=== PATIENT | female | born 1975 | race Hispanic/Latino ===

== ENCOUNTER → 2021-07-27 | Outpatient (CLI) | payer OTHER ==
[~2021-07-27] MED LIST: BUME1TAB6 PO; CALC-1125 PO; FERR-63 PO; HYD25 PO; OMEP20TA25 PO; PNV1TABL17 PO; RIFA550T PO; SPIR25TA PO; TIZA2CAP9 PO; VITA1CAP PO
== END | disposition home or self-care (01) ==
LOC: RAH 15:46
PROVIDERS: ATTEND Internal Medicine
DX: J90 Pleural effusion, not elsewhere classified (principal); K74.60 Unspecified cirrhosis of liver; R91.8 Other nonspecific abnormal finding of lung field; M47.815 Spondylosis without myelopathy or radiculopathy, thoracolumbar region
CPT/HCPCS: 71046

== ENCOUNTER → 2021-11-21 | Outpatient (CLI) | payer OTHER ==
[~2021-11-21] MED LIST changes: +OMEP20TA20 PO; -OMEP20TA25 PO
[2021-11-21 09:01] LABS: INR 1.36 (0.85-1.15); PROTHROMBIN TIME 14.6 SEC (9.6-11.6)
[2021-11-21 09:03] LABS: PARTIAL THROMBOPLASTIN TIME 36.5 SEC (26.3-35.5)
[2021-11-21 09:17] LABS: TOTAL PROTEIN, SERUM 6.3 g/dL (6.0-8.3)
[2021-11-21 12:45] LABS: APPEARANCE BODY FLUID SLIGHTLY CLOUDY (CLEAR); COLOR,BODY FLUID DARK YELLOW (LT YELLOW); SPECIMENTYPE,BODY FLUID PLEURAL; TOTAL VOLUME,BODY FLUID 700 mL
[2021-11-21 12:54] LABS: BODY FLUID RBC 6375 /cu. mm.; BODY FLUID WBC 345 /cu. mm.
[2021-11-21 13:49] LABS: BF EOSINOPHIL 1 %; BF LYMPHOCYTE 90 %; BF MESOTHELIAL 3 %; BF MONOCYTE 5 %
== END | disposition home or self-care (01) ==
LOC: RAH 08:09
PROVIDERS: ATTEND Internal Medicine
DX: J90 Pleural effusion, not elsewhere classified (principal); Z79.01 Long term (current) use of anticoagulants
CPT/HCPCS: 32555; 71045; 82945; 83615 ×2; 84157; 84155; 83986; 89051; 85610; 85730; 87071; 87205; 36415; 88305; 88342; 88112; 88341; C1729

== ENCOUNTER 2024-03-14 07:24 | Day surgery (SDC) | payer OTHER, MEDICARE ==
[2024-03-10 11:32] LABS: BASOPHILS # (AUTO) 0.02 K/uL (0.00-0.20); BASOPHILS % (AUTO) 0.3 % (0.0-5.0); EOSINOPHILS # (AUTO) 0.14 K/uL (0.00-0.70); EOSINOPHILS % (AUTO) 2.2 % (0.0-8.0); HEMATOCRIT 37.4 % (36-48); IMMATURE GRANULOCYTE ABSOLUTE 0.02 K/uL (0-1); LYMPHOCYTES # (AUTO) 1.4 K/uL (1.0-4.8); LYMPHOCYTES % (AUTO) 21.5 % (21.0-51.0); MEAN CORPUSCULAR HGB CONC 33.2 g/dL (32.0-36.0); MEAN CORPUSCULAR VOLUME 87.6 fL (79-99); MONOCYTES # (AUTO) 0.4 K/uL (0.1-1.0); NEUTROPHILS # (AUTO) 4.5 K/uL (1.8-7.7); NEUTROPHILS % (AUTO) 69.7 % (40.0-77.0); PLATELET COUNT (AUTO) 245 K/uL (130-400); RED BLOOD CELL COUNT(AUTO) 4.27 MIL/uL (4.00-5.50); RED CELL DISTRIBUTION WIDTH 15.3 % (11.0-15.5); WHITE BLOOD COUNT (AUTO) 6.5 K/uL (4.8-10.8)
[2024-03-10 11:44] LABS: ALBUMIN 3.9 g/dL (3.5-5.0); BILIRUBIN,TOTAL 0.6 mg/dL (0.2-1.0); CREATININE 4.8 mg/dL (0.5-1.0); POTASSIUM 3.6 mmol/L (3.5-5.1); TOTAL PROTEIN, SERUM 8.3 g/dL (6.0-8.3)
[2024-03-10 11:52] LABS: INR 0.94 (0.85-1.15); PROTHROMBIN TIME 10.2 SEC (9.6-11.6)
[2024-03-10 11:53] LABS: PARTIAL THROMBOPLASTIN TIME 28.6 SEC (26.3-35.5)
[2024-03-10 11:59] VITALS: BP 137/70; PULSE 75; RESP 18; TEMP 98.1
[2024-03-14] VITALS (14 sets, daily range): BP systolic 115–144; BP diastolic 60–82; PULSE 83–101; RESP 14–17; TEMP 97.4–98.1
[~2024-03-14] VITALS: Ht 165.1 cm; Wt 87.3 kg
[~2024-03-14 07:24] MED LIST changes: +ALBU18HF7 IH; +ASPI-1197 PO; -BUME1TAB6 PO; -CALC-1125 PO; -FERR-63 PO; +FOLI0.8T22 PO; +FURO20TA4 PO; -HYD25 PO; +HYDR50TA37 PO; +NIFE-39 PO; -OMEP20TA20 PO; -PNV1TABL17 PO; -RIFA550T PO; +SEVE0.8P PO; -SPIR25TA PO; +TACR1CAP10 PO; -TIZA2CAP9 PO; +URSO300C4 PO; -VITA1CAP PO; +folic acid PO; +rosuvastatin PO
[2024-03-14 08:56] LABS: CREATININE 6.2 mg/dL (0.5-1.0); POTASSIUM 4.3 mmol/L (3.5-5.1)
[2024-03-14] MEDS ORDERED: dexaMETHasone SOD PHOSPHATE 10MG/ML 1ML VIAL ONE (09:20)
[2024-03-14] MEDS ORDERED: LIDOCAINE PF 100MG/5ML (2%) SYRINGE 5ML ONE (09:20)
[2024-03-14] MEDS ORDERED: GLYCOPYRROLATE 0.2 MG/ML 5 ML VIAL ONE (09:20)
[2024-03-14] MEDS ORDERED: SUCCINYLCHOLINE CHLORIDE 20 MG/ML 10 ML VIAL ONE (09:20)
[2024-03-14] MEDS ORDERED: NEOSTIGMINE METHYLSULFATE 1MG/ML IV ONE (09:20)
[2024-03-14] MEDS ORDERED: ondanSETRON 4MG INJ ONE (09:20)
[2024-03-14] MEDS ORDERED: FENTanyl CITRate PF 50 MCG/1 ML 2ML VIAL ONE ×2 (09:21→12:08)
[2024-03-14] MEDS ORDERED: rocuRONium bROMide 10MG/1ML 5ML VL ONE ×2 (09:21→12:15)
[2024-03-14] MEDS ORDERED: proPOFol 10 MG/ML 20ML VIAL IV ONE (09:21)
[2024-03-14] MEDS ORDERED: MIDAZOLAM HCL 1 MG/ML 2ML VIAL ONE (09:21)
[2024-03-14] MEDS: ceFAZolin SODIUM 2 GM VIAL ONE (09:24)
[2024-03-14] MEDS: 0.9% NACL 500ML IV.SOLN 500 ML IV ONE (09:25)
[2024-03-14] MEDS ORDERED: ketaMINE 50MG/ML SYRINGE 50 MG/ML DISP.SYRIN ONE (09:47)
[2024-03-14] MEDS ORDERED: SUGAMMADEX SODIUM 200 MG/2 ML VIAL IV ONE (09:48)
[2024-03-14] MEDS ORDERED: HEParin-NS 1,000 UNIT/500 ML 500 ML IV ONE (10:15)
[2024-03-14] MEDS: ceFAZolin SODIUM 2 GM VIAL IVPB ONE (10:35)
--- NOTE | 2024-03-14 13:06 | OP ---
Operative Note: DATE OF PROCEDURE: 03/14/24 SURGEON: DAVID MILLER MD INSOLE AND HEEL STIFFENER: [] PREOPERATIVE DIAGNOSIS: End-stage renal disease POSTOPERATIVE DIAGNOSIS: End-stage renal disease PROCEDURE: Left upper extremity brachiobasilic fistula creation with transposition, skin tag removal INDICATIONS: Patient needs access for dialysis ESTIMATED BLOOD LOSS: 15cc Devices left in place: None Anesthesia: General endotracheal DESCRIPTION OF PROCEDURE: Patient is brought to the operating room placed on the operating table in a supine position. Once general endotracheal anesthesia is achieved patient's left upper extremity up to the axilla is prepped and draped in sterile fashion. Using ultrasound we identified the basilic vein and c onfirmed that it was adequate for fistula creation and then decision is made to switch from graft creation to fistula creation in the vein had an adequate size. And this is more beneficial for the patient. We then proceeded to create a longitudinal incision medially in the arm and dissected down through the subcutaneous tissue to expose the basilic vein. We exposed that for a length of about 20 cm down to the antecubital fossa. And clipped all its branches. We then proceeded to create a transverse incision at the antecubital fossa. Expose the brachial artery for a length of about 4 cm and obtained proximal and distal control. We then asked anesthesia to give 5000 units of heparin. I then proceeded to clamp the basilic vein proximally and distally divided it at the level of the elbow. And suture ligated the distal and end. We then proceeded to to dilate the vein with heparinized saline and ensured that there were no leaks from all the branches were clipped or sutured. We then proceeded to use a [place] tunneler to tunnel the vein medially and brought it out through the antecubital fossa incision. I then clamped the brachial artery proximally and distally. I then proceeded to create a end-to-side anastomosis between the brachial artery and the basilic vein at the antecubital fossa with 6-0 Prolene. I then opened up the clamp to the vein first and that there to be backflow. And then proceeded to open the proximal clamp on the artery emanated flush out the anastomosis and then open the distal clamp. I then proceeded to suture the anastomosis. Close to our incision in the left upper arm there was a large skin tag. We excised it with curved mayos and then closed the skin opening with 4-0 Monocryl. We ensured with a Doppler that we had a strong palmar arch pulse at the left hand and ulnar and radial pulses as well. We had a good thrill throughout the fistula. We then closed both incisions with 2 layers with subcutaneous tissue being closed with 2-0 Vicryl in running fashion and the skin was closed with 4-0 Monocryl in running fashion. Skin dressings were applied over top patient tolerated the procedure well all counts were correct x2 at the end of the procedure. DAVID MILLER MD Mar 14, 2024 13:06
--- NOTE | 2024-03-14 13:50 | NUR ---
BOTH PT AND SPOUSE GIVEN VERBAL AND WRITTEN DISCHARGE INSTRUCTIONS. PT GIVEN BLUE EXERCISE BALL AND DEMONSTRATED HOW TO DO HAND EXERCISES TO LEFT ARM STARTING TOMORROW. IV REMOVED SITE ASYMPTOMATIC.
--- NOTE | 2024-03-14 21:44 | EKG ---
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
== END 2024-03-14 14:05 | disposition home or self-care (01) ==
LOC: DAH 07:24
PROVIDERS: ATTEND Student in an Organized Health Care Education/Training Program
DX: I12.0 Hypertensive chronic kidney disease with stage 5 chronic kidney disease or end stage renal disease (principal); E11.22 Type 2 diabetes mellitus with diabetic chronic kidney disease; L91.8 Other hypertrophic disorders of the skin; N18.6 End stage renal disease; I44.4 Left anterior fascicular block; E66.9 Obesity, unspecified; J45.909 Unspecified asthma, uncomplicated; E78.00 Pure hypercholesterolemia, unspecified; Z99.2 Dependence on renal dialysis; Z90.49 Acquired absence of other specified parts of digestive tract; Z98.890 Other specified postprocedural states; Z68.33 Body mass index [BMI] 33.0-33.9, adult; Z79.899 Other long term (current) drug therapy
CPT/HCPCS: 80053; 85025; 85610; 85730; 86850 ×2; 86900 ×2; 86901 ×2; 36415 ×2; 36821; 80048; 82948; 93005; A6260; A4663; J7030; J7040; J3010 ×2; J1100; J0330; J3490 ×4; J2003; J2250; J2704; J2405; J2710; J1644; J0690 ×2; A4649 ×3; C1713 ×2; A4930; A4215; A4223; A4222; A4221; A4600

== ENCOUNTER → 2024-03-24 | Outpatient (CLI) | payer OTHER, MEDICARE ==
--- NOTE | 2024-03-24 12:39 | HMCIMG ---
US VENOUS DOPPLER UNILATERAL REASON: LUE SWELLING COMPARISON: March extremity Technique: Left upper extremity venous doppler ultrasound was performed with spectral analysis and color flow imaging technique. FINDINGS: There is a patent AV fistula of the left upper extremity. Arterial velocity at the anastomosis 330 cm/s. The subclavian, axial, brachial, cephalic and basilic veins appear patent without evidence of thrombus. There is a fluid collection adjacent to to the arterial limb of the graft consistent with hematoma. There is no evidence of pseudoaneurysm. The graft itself appears patent. IMPRESSION: 1. Patent left upper extremity veins. 2. Patent to left to side. The arteriovenous graft 3. There is a fluid collection along the arterial limb of the graft consistent with hematoma, no evidence of pseudoaneurysm.
== END | disposition home or self-care (01) ==
LOC: RAH 11:36
PROVIDERS: ATTEND Student in an Organized Health Care Education/Training Program
DX: R22.32 Localized swelling, mass and lump, left upper limb (principal)
CPT/HCPCS: 93971